=== PATIENT | female | born 1965 | race Caucasian/White ===

== ENCOUNTER 2018-07-09 11:05 | Emergency (ER) | payer OTHER ==
[~2018-07-09] VITALS: Ht 172.7 cm; Wt 101.0 kg
[~2018-07-09 11:05] MED LIST: TRAM1TAB7 PO
[2018-07-09] MEDS ORDERED: NAPR-56 PO (12:51)
[2018-07-09 12:56] VITALS: BP 208/105
== END 2018-07-09 12:59 | disposition home or self-care (01) ==
LOC: ER 11:05
DX: S52.591D Other fractures of lower end of right radius, subsequent encounter for closed fracture with routine healing (principal); I10 Essential (primary) hypertension; G89.29 Other chronic pain; Z88.5 Allergy status to narcotic agent; Z88.6 Allergy status to analgesic agent; Z88.8 Allergy status to other drugs, medicaments and biological substances; Z79.899 Other long term (current) drug therapy; Z90.49 Acquired absence of other specified parts of digestive tract; Z90.89 Acquired absence of other organs; X58.XXXD Exposure to other specified factors, subsequent encounter
CPT/HCPCS: 73090; 99284